=== PATIENT | female | born 2000 | race Caucasian/White ===

== ENCOUNTER 2020-12-29 01:14 | Emergency (ER) | payer BC ==
[~2020-12-29] VITALS: Ht 157.5 cm; Wt 53.5 kg
[2020-12-29] MEDS ORDERED: NAPROXEN375 MG PO (04:54)
[2021-01-02] MEDS ORDERED: ACETAMINOPHEN650 M2 (21:14)
== END 2020-12-29 05:06 | disposition home or self-care (01) ==
LOC: ER 01:14 → EMR PED 01:14
DX: S91.341A Puncture wound with foreign body, right foot, initial encounter (principal); T63.691A Toxic effect of contact with other venomous marine animals, accidental (unintentional), initial encounter; M79.671 Pain in right foot